=== PATIENT | female | born 1960 | race Caucasian/White ===

== ENCOUNTER → 2016-08-16 | Outpatient (CLI) | payer OTHER ==
[~2016-08-16] MED LIST: CALCIUM 600 +1 EAC1 PO; IMITREX100 MG PO; LEXAPRO 10 MG T10 M2 PO; MOBIC15 MG PO; MULTIVITAMINS PO; PRILOSEC40 MG PO; SYNTHROID112 MCG PO; VIVELLE-DOT1 EAC1 TRANSDERM
== END ==
LOC: RAD 14:44
DX: Z12.31 Encounter for screening mammogram for malignant neoplasm of breast (principal)

== ENCOUNTER → 2017-08-23 | Outpatient (CLI) | payer OTHER | LOC: RAD 14:35 | DX: Z12.31 Encounter for screening mammogram for malignant neoplasm of breast (principal) ==